=== PATIENT | male | born 1990 | race Caucasian/White ===

== ENCOUNTER 2017-10-18 14:25 | Emergency (ER) | payer OTHER ==
[~2017-10-18] VITALS: Ht 177.8 cm; Wt 77.1 kg
[2017-10-18] MEDS ORDERED: HYDROCODONE-AP1 EAC6 PO (16:47)
[2017-10-18] MEDS ORDERED: KEFLEX500 M1 PO (16:47)
[2017-10-18 17:30] VITALS: BP 127/58
== END 2017-10-18 17:31 | disposition home or self-care (01) ==
LOC: ER 14:25
DX: S02.2XXA Fracture of nasal bones, initial encounter for closed fracture (principal); S09.90XA Unspecified injury of head, initial encounter; W20.8XXA Other cause of strike by thrown, projected or falling object, initial encounter; Y93.89 Activity, other specified; Y92.89 Other specified places as the place of occurrence of the external cause; Y99.8 Other external cause status